=== PATIENT | female | born 1995 | race Two or more races ===

== ENCOUNTER 2017-10-03 12:24 | Emergency (ER) | payer MEDICAID ==
[~2017-10-03] VITALS: Ht 172.7 cm; Wt 76.2 kg
[2017-10-03] MEDS ORDERED: METFORMIN HCL500 M1 ORAL (12:32)
[2017-10-03] MEDS ORDERED: PRENATA CHEWAB1 EACH PO (12:32)
[2017-10-03 13:00] VITALS: BP 124/68
--- NOTE | 2017-10-03 13:01 | Emergency Room Report ---
History of Present Illness General Chief Complaint: Complications Source: Patient Present Illness HPI 22-year-old female approximately 25 weeks, G4 A3 P0 walks in with abdominal pain and vaginal spotting for one day. Assoc with nausea. Previous pregnancies ended with miscarriage around 22 weeks. Denies vaginal bleeding/clots, diarrhea , vomiting, sick contacts. Allergies: Coded Allergies: DIAZEPAM (Verified Allergy, Unknown, Hives, 10/03/17) HIVES & SOB. Patient History Past Medical History: none Past Surgical History: none Pertinent Family History: none Social History: Denies: smoking, alcohol use, drug use Now: Yes : 4 Para: 0 Nursing Documentation-PMH Hx Hypertension: Yes Hx Diabetes: Yes - DM2 Review of Systems All Other Systems: negative except mentioned in HPI Physical Exam Vital Signs Date Time Temp Pulse Resp B/P (MAP) Pulse Ox O2 Delivery O2 Flow Rate FiO2 10/03/17 12:28 98.4 114 20 124/68 95 Room Air 98.4 Sp02 EP Interpretation: reviewed, normal General Appearance: normal inspection, well appearing, no apparent distress, alert, GCS 15, non-toxic Head: normocephalic, atraumatic Eyes: bilateral eye PERRL, bilateral eye EOMI ENT: normal ENT inspection, hearing grossly normal, normal pharynx, no angioedema, normal voice, TMs + canals normal, uvula midline, moist mucus membranes Neck: normal inspection, full range of motion, supple, thyroid normal, no meningismus, no bony tend Respiratory: normal inspection, lungs clear, normal breath sounds, no rhonchi, no respiratory distress, no retraction, no accessory muscle use, no wheezing, speaking full sentences Cardiovascular #1: regular rate, rhythm, no edema, no JVD, normal capillary refill Gastrointestinal: normal inspection, normal bowel sounds, non tender, soft, no mass, no peritonitis, non-distended, no guarding, no hernia, no pulsatile mass, other - Gravid uterus Genitourinary: no CVA tenderness Musculoskeletal: normal inspection, back normal, normal range of motion, no calf tenderness, pelvis stable, Cecilio's Sign negative Neurologic: normal inspection, alert, oriented x3, responsive, upholstery handler III-XII nml as tested, motor strength/tone normal, cerebellar normal, normal gait, speech normal Psychiatric: normal inspection, judgement/insight normal, mood/affect normal, no suicidal/homicidal ideation, no delusions Skin: normal inspection, normal color, no rash Lymphatic: normal inspection, no adenopathy Medical Decision Making Diagnostic Impression: Primary Impression: Vaginal bleeding ER Course VSS, afebrile No active hemorrhage Spoke to patient/partner, advised them to go to larger [facility] with [place]. monitoring/testing ER course: Patient has remained stable during ED stay. Disposition: Patient is to be discharged to home. Patient is instructed to go to nearest ER for monitoring Strict return precautions discussed with patient such as fever, chills, worsening/severe pain, nausea, vomiting, which may indicate severe illness. Patient verbalizes understanding and agrees with plan. Please note that this Emergency Department Report was dictated using [employer] software, occasionally this can lead to erroneous entry secondary to interpretation by the dictation equipment Last Vital Signs Date Time Temp Pulse Resp B/P (MAP) Pulse Ox O2 Delivery O2 Flow Rate FiO2 10/03/17 12:28 98.4 114 20 124/68 95 Room Air 98.4 Status: improved Disposition: HOME, SELF-CARE Condition: Improved Patient Instructions: Labor Information Additional Instructions: GO IMMEDIATELY TO ER WITH HEART MONITORING ON [facility] [facility] FLOOR WES SPEAR M.D. Oct 03, 2017 13:01
== END 2017-10-03 13:13 | disposition home or self-care (01) ==
LOC: EMR 12:54
DX: O46.92 Antepartum hemorrhage, unspecified, second trimester (principal); Z3A.25 25 weeks gestation of pregnancy; O16.2 Unspecified maternal hypertension, second trimester; O24.119 Pre-existing type 2 diabetes mellitus, in pregnancy, unspecified trimester; E11.8 Type 2 diabetes mellitus with unspecified complications
CPT/HCPCS: 99283